=== PATIENT | female | born 1970 | race Two or more races ===

== ENCOUNTER 2017-05-11 12:59 | Emergency (ER) | payer MEDICAID ==
[~2017-05-11] VITALS: Ht 162.6 cm; Wt 49.9 kg
[2017-05-11 13:09] VITALS: BP 150/86
== END 2017-05-11 22:15 | disposition left against medical advice (07) ==
LOC: ER 12:59
DX: F41.9 Anxiety disorder, unspecified (principal); E11.9 Type 2 diabetes mellitus without complications; I10 Essential (primary) hypertension
CPT/HCPCS: 93005